=== PATIENT | male | born 1955 | race Caucasian/White ===

== ENCOUNTER 2019-10-24 12:19 | Observation (INO) | payer OTHER ==
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
--- NOTE | 2019-10-24 13:27 | ED ---
Skin Complaint - HPI Summary HPI Summary: Patient is a 64-year-old male who presents emergency department for abscess to buttocks times one week. Patient states that area has progressively gotten more painful and swollen. Since being in the ER area has opened and started to drain foul-smelling purulent discharge. Patient denies associate symptoms of fever, chills, vomiting, abdominal pain, testicular swelling/pain. Past medical history of morbid obesity, hypertension, diabetes, DVT. Symptoms are moderate in severity. Touching her makes symptoms worse. Nothing makes it better. - History of Current Complaint Chief Complaint: EDRashSkinAbscess Time Seen by Provider: 10/24/19 12:43 Stated Complaint: SPOT ON BOTTOM PER Hx Obtained From: Patient Pain Intensity: 8 - Allergy/Home Medications Allergies/Adverse Reactions: Allergies Allergy/AdvReac Type Severity Reaction Status Date / Time bee stings Allergy Severe anaphylaxis Uncoded 10/24/19 12:27 Home Medications: Home Medications ARIPiprazole TAB* [Abilify TAB*] 5 mg PO DAILY 10/24/19 [History Confirmed ] Acetaminophen [Tylenol Extra Strength] 1,300 mg PO TID PRN 10/24/19 [History Confirmed 10/24/19] Calcium Carbonate CHEW TAB* [Tums*] 500 mg PO TID 10/24/19 [History Confirmed ] DULoxetine CAP* [Cymbalta CAP*] 90 mg PO DAILY 10/24/19 [History Confirmed ] Desmopressin TAB (NF) 0.4 mg PO BEDTIME 10/24/19 [History Confirmed 10/24/19] EPINEPHrine [Epipen] 0.3 mg INJ ONCE PRN 10/24/19 [History Confirmed 10/24/19] Fluticasone NASAL SPRAY 50MCG* [Flonase NASAL SPRAY 50MCG*] 1 spray BOTH NARES BID 10/24/19 [History Confirmed 10/24/19] Lisinopril/Hydrochlorothiazide [Lisinopril-Hctz 20-12.5 mg Tab] 1 each PO DAILY 10/24/19 [History Confirmed 10/24/19] Metoprolol Succinate XL TAB* [Toprol XL TAB*] 25 mg PO DAILY 10/24/19 [History Confirmed 10/24/19] Nystatin OINT* 1 applic TOPICAL BID 10/24/19 [History Confirmed 10/24/19] Semaglutide [Ozempic] 1 mg SUBCUT WEEKLY 10/24/19 [History Confirmed 10/24/19] Warfarin TAB(*) [Coumadin TAB(*)] 15 mg PO SUTH 10/24/19 [History Confirmed ] PMH/Surg Hx/FS Hx/Imm Hx Previously Healthy: Yes Endocrine/Hematology History: Denies: Hx Diabetes, Hx Thyroid Disease Cardiovascular History: Reports: Hx Deep Vein Thrombosis - He, Hx Hypertension Denies: Hx Congestive Heart Failure, Hx Myocardial Infarction, Hx Pacemaker/ ICD Respiratory History: Reports: Hx Sleep Apnea - current CPAP user Denies: Hx Asthma, Hx Chronic Obstructive Pulmonary Disease (COPD), Hx Lung Cancer, Hx Pneumonia, Hx Pulmonary Embolism GI History: Denies: Hx Gall Bladder Disease, Hx Gastrointestinal Bleed, Hx Ulcer, Hx Urosepsis History: Reports: Other Problems/Disorders - bladder control Denies: Hx Kidney Stones, Hx Renal Disease Neurological History: Reports: Hx Seizures Denies: Hx Dementia, Hx Migraine, Hx Transient Ischemic Attacks (TIA) Psychiatric History: Reports: Hx Anxiety, Hx Depression Denies: Hx Schizophrenia, Hx Bipolar Disorder - Surgical History Surgery Procedure, Year, and Place: Repair median nerve right arm. [place] filter for blood clots 2006 Infectious Disease History: No Infectious Disease History: Denies: Hx Hepatitis, Hx Human Immunodeficiency Virus (HIV), Traveled Outside the [place] in Last 30 Days - Family History Known Family History: Positive: Cardiac Disease, Hypertension, Non-Contributory - Social History Occupation: Disabled Lives: With Family Alcohol Use: None Substance Use Type: Reports: None Smoking Status (MU): Heavy Every Day Tobacco Smoker Type: Cigarettes Amount Used/How Often: 1 1/2 pack daily Review of Systems Constitutional: Negative Negative: Fever Gastrointestinal: Negative Negative: Abdominal Pain, Vomiting, Nausea Genitourinary: Negative Positive: Other - abscess near rectum All Other Systems Reviewed And Are Negative: Yes Physical Exam Triage Information Reviewed: Yes Vital Signs On Initial Exam: Initial Vitals Temp Pulse Resp BP Pulse Ox 97.9 F 87 16 144/76 93 10/24/19 12:22 10/24/19 12:22 10/24/19 12:22 10/24/19 12:22 10/24/19 12:22 Vital Signs Reviewed: Yes Appearance: Positive: Well-Appearing - Pt. lying on his left side in NAD. present. Skin: Positive: Warm, Dry, Other - Difficult exam given body habitus. Purulent drainage noted from the rectal region. Head/Face: Positive: Normal Head/Face Inspection Eyes: Positive: Normal, EOMI Neck: Positive: Supple Respiratory/Lung Sounds: Positive: Clear to Auscultation, Breath Sounds Present Cardiovascular: Positive: Normal, RRR Abdomen Description: Positive: Other: - Morbidly obese Musculoskeletal: Positive: Normal, Strength/ROM Intact Neurological: Positive: Normal, CN Intact II-III Psychiatric: Positive: Affect/Mood Appropriate Diagnostics - Vital Signs Vital Signs Temp Pulse Resp BP Pulse Ox 10/24/19 12:22 97.9 F 87 16 144/76 93 - Laboratory Result Diagrams: 10/25/19 04:59 10/24/19 13:28 Lab Statement: Any lab studies that have been ordered have been reviewed, and results considered in the medical decision making process. Course/Dx - Course Course Of Treatment: Pt. presenting with likely perirectal abscess. Exam is difficult given pt.'s body habitus. Large amount foul smelling purulent matter draining since in ED. Will obtain labs and ct scan to evaluate extend of abscess and rectal involvement. CT pelvis per radiology: IMPRESSION: 1. A RIGHT ECCENTRIC RIM-ENHANCING PERIANAL COLLECTION EXTENDS FROM APPROXIMATELY THE. 10:00 REGION OF THE ANAL CANAL TO THE GLUTEAL CLEFT. IT MEASURES 4.6 X 4.8 X 1.3 CM. DELINEATION OF A POTENTIAL TRACT (INTRA / TRANS / EXTRA / SUPRA- SPHINCTERIC FISTULA) WOULD. REQUIRE MRI. WBC 11.5, CRP 87. Given extent of abscess, surgery was consulted. Case discussed with Dr. Enamorado and she will evaluate pt. in the ED. Pt. given a dose of Clinda to cover potential MRSA. Pending wound culture. Pt. will be signed out to PANCHO Russell for surgery consult and disposition. - Differential Diagnoses - Skin Complaint Differential Diagnoses: Abscess, Cellulitis - Diagnoses Provider Diagnoses: Rectal abscess Discharge ED - Sign-Out/Discharge Documenting (check all that apply): Patient Departure All imaging exams completed and their final reports reviewed: No - Discharge Plan Condition: Stable Disposition: ADMITTED TO [facility] - Billing Disposition and Condition Condition: STABLE Disposition: Admitted to [facility] - Attestation Statements Provider Attestation: I was available for consult. This patient was seen by the DOLLY. The patient was not presented to, seen by, or examined by me. -Mohsen
[2019-10-24 13:43] LABS: ABS Basophils 0.1 10^3/ul (0-0.2); ABS Lymphocytes 2.3 10^3/ul (1.0-4.8); ABS Monocytes 1.1 10^3/ul (0-0.8); Hematocrit 43 % (42-52); Hemoglobin 14.6 g/dL (14.0-18.0); Lymphocyte % 19.7 %; Mean Corpuscular HGB Conc 34 g/dL (31-36); Mean Corpuscular Hemoglobin 32 pg (27-31); Mean Corpuscular Volume 93 fL (80-94); Mean Platelet Volume 9.5 fL (7.4-10.4); Nucleated Red Blood Cells % 0.1; Platelet Count 189 10^3/uL (150-450); Red Blood Count 4.62 10^6 /uL (4.18-5.48); Red Cell Distribution Width 15 % (10-15); White Blood Count 11.5 10^3/uL (3.5-10.8)
[2019-10-24 14:18] LABS: Albumin 3.6 g/dL (3.2-5.2); Albumin/Globulin Ratio 1.2 (1-3); BUN/Creatinine Ratio 22.2 (8-20); C Reactive Protein 87.17 mg/L (<8.01); Calcium 8.8 mg/dL (8.6-10.3); EGFR African American 133.8 (>60); EGFR Non-African American 110.6 (>60); Globulin 3.1 g/dL (2-4); Total Bilirubin 0.3 mg/dL (0.2-1.0); Total Protein 6.7 g/dL (6.4-8.9)
[2019-10-24 14:23] LABS: INR 2.32 (0.82-1.09)
[2019-10-24] MEDS ORDERED: Iohexol 300* (CONTRAST) 10 ML SDV IV ONE (14:36)
[2019-10-24] MEDS ORDERED: Iodixanol 320 (CONTRAST) 200 ML SDV IV ONE (14:57)
[2019-10-24] MEDS ORDERED: Clindamycin 600 MG/D5W BAG(*) 600 MG/50 ML BAG IV ONE (16:58)
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
[2019-10-24] MEDS ORDERED: Dextrose 50% VIAL 50 ml IV PUSH PRN (20:35)
[2019-10-24] MEDS ORDERED: Desmopressin TAB (NF) 0.2 MG TAB PO SCH (21:00)
--- NOTE | 2019-10-24 21:19 | PN ---
Progress Note - Progress Note Date of Service: 10/24/19 Note: Patient signed out to me by Rafael PAULINO pending evaluation by surgery. Surgery Dr. Enamorado , after examining patient, recommends admission for IV abx, states no procedure indicated at this time. Patient in stable condition. IV clindamycin administered here in the ED. Admitted to hospitalist.
[2019-10-24] MEDS: Insulin LISPRO* 1 UNITS UNIT SUBCUT SCH (22:41)
[2019-10-24] MEDS: ceFAZolin VIAL(*) 2 GM in NS 0.9% 100 ML* 100 ML IVPB SCH (22:55)
[2019-10-24] MEDS: Nystatin OINT* 15 GM TOPICAL SCH (22:55)
[2019-10-24] MEDS: Gabapentin CAP(*) 300 MG PO SCH (22:55)
[2019-10-25] MEDS ORDERED: PHENobarbital TAB(*) 100 MG PO SCH
[2019-10-25 05:19] LABS: ABS Basophils 0.1 10^3/ul (0-0.2); ABS Lymphocytes 2.7 10^3/ul (1.0-4.8); ABS Monocytes 0.9 10^3/ul (0-0.8); ABS Neutrophils 5.6 10^3/ul (1.5-7.7); Hematocrit 43 % (42-52); Hemoglobin 14.5 g/dL (14.0-18.0); Lymphocyte % 29.4 %; Mean Corpuscular HGB Conc 34 g/dL (31-36); Mean Corpuscular Hemoglobin 32 pg (27-31); Mean Corpuscular Volume 93 fL (80-94); Mean Platelet Volume 9.6 fL (7.4-10.4); Nucleated Red Blood Cells % 0.2; Platelet Count 193 10^3/uL (150-450); Red Blood Count 4.58 10^6 /uL (4.18-5.48); Red Cell Distribution Width 15 % (10-15); White Blood Count 9.3 10^3/uL (3.5-10.8)
[2019-10-25 05:32] LABS: INR 2.45 (0.82-1.09)
[2019-10-25] MEDS: ceFAZolin VIAL(*) 2 GM in NS 0.9% 100 ML* 100 ML IVPB SCH (06:24)
[2019-10-25] MEDS: Insulin LISPRO* 1 UNITS UNIT SUBCUT SCH ×2 (07:49→12:43)
--- NOTE | 2019-10-25 08:32 | PN ---
Progress Note - Progress Note Date of Service: 10/25/19 Note: Patient reports that the pain has improved significantly. Denies chest pain, shortness of breath, abdominal pain, or nausea. Afebrile. Temp Pulse Resp BP Pulse Ox 97.7 F 70 18 142/48 93 10/25/19 02:50 10/25/19 02:50 10/25/19 04:26 10/25/19 02:50 10/25/19 02:50 Intake & Output 10/24/19 10/25/19 10/25/19 22:59 06:59 14:59 Intake Total 50 100 Balance 50 100 Weight 392 lb 14.4 oz General: No acute distress Rectal: Wound to the right of anus. Area is soft, mild tenderness to palpation. No fluctuance. Small amount of serosanguinous drainage. Cellulitis improved significantly. Neuro: Alert, oriented x3 Laboratory Results - last 24 hr 10/24/19 10/24/19 10/24/19 13:28 13:28 13:28 WBC 11.5 H RBC 4.62 Hgb 14.6 Hct 43 MCV 93 MCH 32 H MCHC 34 RDW 15 Plt Count 189 MPV 9.5 Neut % (Auto) 70.2 Lymph % (Auto) 19.7 Grand % (Auto) 9.4 Eos % (Auto) 0.0 Baso % (Auto) 0.7 Absolute Neuts (auto) 8.0 H Absolute Lymphs (auto) 2.3 Absolute Monos (auto) 1.1 H Absolute Eos (auto) 0.0 Absolute Basos (auto) 0.1 Absolute Nucleated RBC 0.0 Nucleated RBC % 0.1 INR (Anticoag Therapy) 2.32 H APTT Sodium 138 Potassium 4.0 Chloride 105 Carbon Dioxide 28 Anion Gap 5 BUN 16 Creatinine 0.72 Est GFR ( Amer) 133.8 Est GFR (Non-Af Amer) 110.6 BUN/Creatinine Ratio 22.2 H Glucose 114 H POC Glucose (mg/dL) Calcium 8.8 Total Bilirubin 0.30 AST 9 L ALT 14 Alkaline Phosphatase 132 H C-Reactive Protein 87.17 H Total Protein 6.7 Albumin 3.6 Globulin 3.1 Albumin/Globulin Ratio 1.2 Phenobarbital 25.1 10/24/19 10/25/19 10/25/19 22:40 04:59 04:59 WBC 9.3 RBC 4.58 Hgb 14.5 Hct 43 MCV 93 MCH 32 H MCHC 34 RDW 15 Plt Count 193 MPV 9.6 Neut % (Auto) 59.9 Lymph % (Auto) 29.4 Grand % (Auto) 10.1 Eos % (Auto) 0.0 Baso % (Auto) 0.6 Absolute Neuts (auto) 5.6 Absolute Lymphs (auto) 2.7 Absolute Monos (auto) 0.9 H Absolute Eos (auto) 0.0 Absolute Basos (auto) 0.1 Absolute Nucleated RBC 0.0 Nucleated RBC % 0.2 INR (Anticoag Therapy) 2.45 H APTT Sodium Potassium Chloride Carbon Dioxide Anion Gap BUN Creatinine Est GFR ( Amer) Est GFR (Non-Af Amer) BUN/Creatinine Ratio Glucose POC Glucose (mg/dL) 127 H Calcium Total Bilirubin AST ALT Alkaline Phosphatase C-Reactive Protein Total Protein Albumin Globulin Albumin/Globulin Ratio Phenobarbital 10/25/19 10/25/19 05:00 07:37 WBC RBC Hgb Hct MCV MCH MCHC RDW Plt Count MPV Neut % (Auto) Lymph % (Auto) Grand % (Auto) Eos % (Auto) Baso % (Auto) Absolute Neuts (auto) Absolute Lymphs (auto) Absolute Monos (auto) Absolute Eos (auto) Absolute Basos (auto) Absolute Nucleated RBC Nucleated RBC % INR (Anticoag Therapy) APTT 45.1 H Sodium Potassium Chloride Carbon Dioxide Anion Gap BUN Creatinine Est GFR ( Amer) Est GFR (Non-Af Amer) BUN/Creatinine Ratio Glucose POC Glucose (mg/dL) 115 H Calcium Total Bilirubin AST ALT Alkaline Phosphatase C-Reactive Protein Total Protein Albumin Globulin Albumin/Globulin Ratio Phenobarbital Wound culture- S. aureus negative. Culture pending. A&P 64M with R perianal abscess spontaneously drained and cellulitis. Improving after drainage and antibiotics. -Continue antibiotics. With regard to abscess, could switch to oral antibiotics. -Unlikely to need I&D at this time. Could restart warfarin if medically appropriate.
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
[2019-10-25] MEDS ORDERED: Pantoprazole TAB * 40 MG TAB PO SCH (09:00)
[2019-10-25] MEDS ORDERED: Hydrochlorothiazide TAB* 25 MG PO SCH (09:00)
[2019-10-25] MEDS ORDERED: Metoprolol Succinate XL TAB* 25 MG PO SCH (09:00)
[2019-10-25] MEDS ORDERED: PHENobarbital TAB(*) 30 MG PO SCH (09:00)
[2019-10-25] MEDS ORDERED: Lisinopril TAB* 10 MG PO SCH (09:00)
[2019-10-25] MEDS ORDERED: Lisinopril/HCTZ 20/12.5(NF) TAB PO SCH (09:00)
[2019-10-25] MEDS ORDERED: DULoxetine DR CAP* 30 MG CAP.DR PO SCH (09:00)
[2019-10-25] MEDS ORDERED: ARIPiprazole TAB* 5 MG PO SCH (09:00)
[2019-10-25] MEDS: Gabapentin CAP(*) 300 MG PO SCH ×2 (09:08→14:32)
[2019-10-25] MEDS: Nystatin OINT* 15 GM TOPICAL SCH (09:09)
[2019-10-25] MEDS ORDERED: Magnesium Hydroxide LIQ* 30 ML UDC PO ONE (11:01)
[2019-10-25] MEDS ORDERED: ceFAZolin 2 GM PREMIX in ORs 2 GM/50 ML BAG IVPB SCH (14:00)
[2019-10-25] MEDS ORDERED: Heparin VIAL(*) 5000 UNITS/ML VIAL (FIVE THOUSAND) SUBCUT SCH (14:00)
[2019-10-25 15:50] VITALS: BP 142/62
[2019-10-25] MEDS ORDERED: Warfarin TAB(*) 10 MG PO SCH (17:00)
[2019-10-25] MEDS ORDERED: Desmopressin TAB (NF) 0.1 MG TAB PO SCH (21:00)
--- NOTE | 2019-10-26 06:18 | DS ---
CC: Dulce Rosen NP; Dr. Gabriella Enamorado * DISCHARGE SUMMARY: DATE OF ADMISSION: 10/24/19 at approximately 3 a.m. DATE OF DISCHARGE: 10/25/19 ATTENDING PHYSICIAN WHILE IN THE HOSPITAL: Dr. Scot Nuñez * (dictated by LORA Salcido). PRIMARY CARE PROVIDER: Dulce Rosen NP PRIMARY DIAGNOSIS: Right perianal abscess with surrounding cellulitis, which is improving. SECONDARY DIAGNOSES: 1. Diabetes mellitus, type 2. 2. Hypertension. 3. Obstructive sleep apnea. 4. Seizure disorder. 5. History of DVT, on warfarin. 6. Peptic ulcer disease. 7. Morbid obesity. 8. History of depression. CONSULTING GENERAL SURGEON: Dr. Gabriella Enamorado. PERTINENT STUDIES/LABORATORY DATA: White blood cell count is 11.5 on admission and 9.3 on the day of discharge. Hemoglobin A1c 6.2. Pelvis CT on 10/24/19, right eccentric, rim enhancing perianal collection extends from proximally the 10 o'clock region of the anal canal to the gluteal cleft. It measures 4.6 x 4.8 x 1.3 cm. Delineation of potential track would require MRI. HISTORY OF PRESENT ILLNESS AND HOSPITAL COURSE: Lee Green is a 64-year- old white male with past medical history significant for diabetes, hypertension , ESAU, and DVT, on Coumadin, who presented to the emergency department due to buttock pain on 10/24/19. He was noted to have had spontaneous drainage of an area next to his rectum on the right side with bloody and purulent discharge. He was evaluated by General Surgery, who ultimately did not believe any surgical intervention was needed due to spontaneous drainage and the improvement of the wound on IV antibiotics. He was on cefazolin during his hospital stay and his wound was MRSA negative. Given the great improvement of his wound and no need for surgical intervention, it was deemed that he was safe for discharge and significant wound care instructions were given by myself and the nurse. His did express to me concern that he has been bathing as frequently as usual and is concerned that he is more depressed than his baseline , although the patient did not express any suicidal or homicidal ideations, however, he did appear quite flat during exam. The also expressed to me that they have been unable to fill his prescription for semaglutide due to insurance coverage issues, however, his blood glucose is overall quite controlled as his hemoglobin A1c was 6.2 and we did discuss this. PHYSICAL EXAMINATION ON THE DAY OF DISCHARGE: General: A morbidly obese, white male, sitting in hospital chair, appearing comfortable, in no acute distress. Heart: Regular rate and rhythm without murmurs, rubs, or gallops. Abdomen: Soft, nontender, and nondistended. Neuro: The patient is alert and oriented x3. Skin: Approximately 3 cm diameter wound in the right buttock in the intragluteal folds. No surrounding erythema. Wound base is clean. No purulent drainage. DISCHARGE PLAN: Diet: Diabetic diet. Activity: The patient may return to normal activity as tolerated. The patient will be followed by [facility] for wound assessments at home. The patient and his were advised to check the wound daily to ensure there is no further recollection of abscess and to ensure there is no purulent drainage. The patient is advised to return to the emergency department if he experience any reaccumulation, increased pain, increased redness around the wound, fever, chills, chest pain, difficulty breathing, or other concerning symptoms. The patient is advised to follow up with primary care provider within 1 week. At this time, it will be a benefit to discuss changing the semaglutide to a different medication of the same class for improved insurance coverage. Additionally, perhaps, it could be discussed if an additional antidepressant agent needs to be added. The patient was advised soapy washes to the wound daily. He is advised to continue his antibiotic as the wound was MRSA negative and the patient he has no history of previous resistance to antibiotic, I believe Keflex is appropriate choice; however, his wound culture should be followed outpatient. DISCHARGE MEDICATIONS: New medications: 1. Keflex 500 mg p.o. 4 times a day x7 days. Continued home medications: 1. Empagliflozin/metformin 12.03/1000 mg p.o. daily. 2. Nystatin ointment for application topically b.i.d. 3. Coumadin 20 mg p.o. on Wednesday, Wednesday, Wednesday, Wednesday, Wednesday. 4. Coumadin 15 mg p.o. on Wednesday and . 5. Protonix 40 mg p.o. p.o. daily. 6. Calcium carbonate 500 mg p.o. t.i.d. 7. Gabapentin 300 mg p.o. t.i.d. 8. EpiPen 0.3 mg injection once p.r.n. anaphylaxis. 9. Metoprolol succinate 25 mg p.o. daily. 10. Lisinopril/hydrochlorothiazide 20/12.5 mg p.o. 1 tablet daily. 11. Duloxetine 90 mg p.o. daily. 12. Abilify 5 mg p.o. daily. 13. Flonase nasal spray 1 spray in both nares b.i.d. 14. Tylenol 1300 mg p.o. t.i.d. p.r.n. 15. Desmopressin 0.4 mg p.o. at bedtime. 16. Phenobarbital 356.4 mg p.o. daily. 17. Semaglutide 1 mg subcu weekly. CONDITION ON DISCHARGE: Stable. DISPOSITION: Home. TIME SPENT: Approximately 45 minutes was spent on this discharge, approximately half of this time was spent at bedside evaluating the patient and discussing the plan of care. LORA SALCIDO [id number]/CPS #: [id number] MTDD
[2019-10-26] MEDS ORDERED: Warfarin TAB(*) 5 MG PO SCH (17:00)
[2019-10-27] MEDS ORDERED: metFORMIN* 1,000 MG TAB PO SCH (08:00)
== END 2019-10-25 16:45 | disposition home or self-care (01) ==
LOC: ED 12:19 → INTOOBSV 20:32 → MED 20:32
PROVIDERS: ADMIT Internal Medicine; ATTEND Internal Medicine
DX: K61.0 Anal abscess (principal); L03.90 Cellulitis, unspecified; E11.9 Type 2 diabetes mellitus without complications; I10 Essential (primary) hypertension; G47.33 Obstructive sleep apnea (adult) (pediatric); G40.909 Epilepsy, unspecified, not intractable, without status epilepticus; K27.9 Peptic ulcer, site unspecified, unspecified as acute or chronic, without hemorrhage or perforation; Z86.718 Personal history of other venous thrombosis and embolism; F32.9 Major depressive disorder, single episode, unspecified; Z79.01 Long term (current) use of anticoagulants; E66.01 Morbid (severe) obesity due to excess calories; Z79.899 Other long term (current) drug therapy; F17.210 Nicotine dependence, cigarettes, uncomplicated
CPT/HCPCS: 36415; 72193; 80053; 80184; 83036; 85025; 85610; 85730; 86140; 87070; 87077; 87205; 87640; 87641; 94660; 96365; 96366; 96372; 99284; 99406; A9270-GY; G0378; J0690; J1644; Q9967

== ENCOUNTER 2020-05-02 01:01 | Observation (INO) ==
[2020-05-02] MEDS ORDERED: cefTRIAXone 1 gm/50 mL NS BAG 1 GM/50 ML BAG IV ONE (05:59)
[2020-05-02] MEDS ORDERED: NS 0.9% 1000 ml BAG 3,000 ML IV ONE (06:26)
[2020-05-02 06:29] LABS: Hematocrit 50 % (42-52); Hemoglobin 16.8 g/dL (14.0-18.0); Mean Corpuscular HGB Conc 34 g/dL (31-36); Mean Corpuscular Hemoglobin 32 pg (27-31); Mean Corpuscular Volume 93 fL (80-94); Red Blood Count 5.33 10^6 /uL (4.18-5.48); White Blood Count 18.9 10^3/uL (3.5-10.8)
[2020-05-02 06:30] LABS: ABS Basophils 0.1 10^3/ul (0-0.2); ABS Lymphocytes 1.2 10^3/ul (1.0-4.8); ABS Monocytes 1.2 10^3/ul (0-0.8); Lymphocyte % 6.4 %; Mean Platelet Volume 10.9 fL (7.4-10.4); Platelet Count 161 10^3/uL (150-450); Red Cell Distribution Width 15 % (10-15)
[2020-05-02 06:32] LABS: Alcohol, S < 10 mg/dL (<10); INR 2.37 (0.82-1.09)
[2020-05-02 06:33] LABS: ALT 25 U/L (7-52); AST 17 U/L (13-39); Albumin 4.1 g/dL (3.2-5.2); Albumin/Globulin Ratio 1.4 (1-3); Alkaline Phosphatase 137 U/L (34-104); Anion Gap 12 mmol/L (2-11); BUN/Creatinine Ratio 21.3 (8-20); Blood Urea Nitrogen 23 mg/dL (6-24); CO2 Carbon Dioxide 21 mmol/L (22-32); Calcium 8.9 mg/dL (8.6-10.3); Chloride 102 mmol/L (101-111); EGFR African American 83.6 (>60); EGFR Non-African American 69.1 (>60); Globulin 2.9 g/dL (2-4); Glucose 170 mg/dL (70-100); Sodium 135 mmol/L (135-145)
[2020-05-02 06:34] LABS: Troponin I 0.04 ng/mL (<0.03)
[2020-05-02 07:27] LABS: Urine Appearance Clear; Urine Bilirubin Negative (Negative); Urine Blood Negative (Negative); Urine Color Amber; Urine Glucose 3+(>=500 mg/dL) (Negative); Urine Ketones Negative (Negative); Urine Nitrite Negative (Negative); Urine Protein 1+(30 mg/dL) (Negative); Urine Specific Gravity 1.031 (1.010-1.030); Urine Urobilinogen Negative (Negative)
[2020-05-02 08:10] LABS: Urine Benzodiazepine Screen None Detected (None Detect); Urine Opiates Screen None Detected (None Detect)
[2020-05-02] MEDS ORDERED: Al Hydrox/Mg Hydrox/Simet LIQ 30 ML UDC PO PRN (08:13)
[2020-05-02] MEDS ORDERED: Albuterol 2.5mg/3 ml (0.083%) NEB.SOLN INH PRN (08:13)
[2020-05-02] MEDS ORDERED: Dextrose 50% Syringe 50 ml 25 GM/50 ML SYRINGE IV PUSH PRN (08:18)
[2020-05-02 08:52] LABS: Urine Bacteria Absent (Absent); Urine Red Blood Cell Absent (Absent); Urine White Blood Cell Absent (Absent)
[2020-05-02] MEDS ORDERED: Senna TAB 8.6 mg TAB PO PRN (09:06)
[2020-05-02] MEDS ORDERED: Magnesium Hydroxide LIQ 30 ML UDC PO PRN (09:06)
[2020-05-02 11:22] LABS: Troponin I 0.05 ng/mL (<0.03)
[2020-05-02] MEDS: Insulin LISPRO 100 units/ml(*) SUBCUT SCH ×3 (11:28→22:46)
[2020-05-02] MEDS: PHENOBARBITAL 100 MG PO SCH (11:29)
[2020-05-02] MEDS: PHENOBARBITAL 30 MG PO SCH (11:29)
[2020-05-02 16:20] LABS: Troponin I 0.05 ng/mL (<0.03)
[2020-05-03] MEDS ORDERED: DULoxetine DR 60 mg CAP PO SCH (09:00)
[2020-05-03] MEDS ORDERED: Calcium Citrate 200 mg TAB PO SCH (09:00)
[2020-05-03] MEDS ORDERED: WARFARIN 10 MG PO SCH (09:00)
[2020-05-03 09:16] LABS: Hematocrit 42 % (42-52); Hemoglobin 14.2 g/dL (14.0-18.0); Mean Corpuscular HGB Conc 34 g/dL (31-36); Mean Corpuscular Hemoglobin 31 pg (27-31); Mean Corpuscular Volume 92 fL (80-94); Mean Platelet Volume 10.5 fL (7.4-10.4); Platelet Count 142 10^3/uL (150-450); Red Blood Count 4.51 10^6 /uL (4.18-5.48); Red Cell Distribution Width 15 % (10-15); White Blood Count 18.2 10^3/uL (3.5-10.8)
[2020-05-03] MEDS: Insulin LISPRO 100 units/ml(*) SUBCUT SCH ×2 (09:16→12:48)
[2020-05-03] MEDS: PHENOBARBITAL 30 MG PO SCH (09:17)
[2020-05-03] MEDS: PHENOBARBITAL 100 MG PO SCH (09:18)
[2020-05-03 09:35] LABS: BUN/Creatinine Ratio 21.6 (8-20); Calcium 8.6 mg/dL (8.6-10.3); EGFR African American 129.3 (>60); EGFR Non-African American 106.8 (>60); Potassium 3.9 mmol/L (3.5-5.0)
[2020-05-03 10:32] LABS: ABS Basophils 0.1 10^3/ul (0-0.2); Lymphocyte % 10.8 %
[2020-05-03] MEDS ORDERED: Perflutren Lipid Microsphere 3 ML VIAL ONE (10:35)
[2020-05-03 12:55] VITALS: BP 147/69
[2020-05-03 15:55] LABS: INR 2.19 (0.82-1.09)
== END 2020-05-03 16:00 | disposition home or self-care (01) ==
LOC: MED 01:01 → ED 01:01
PROVIDERS: ADMIT Internal Medicine; ATTEND Internal Medicine